=== PATIENT | female | born 1975 | race Caucasian/White ===

== ENCOUNTER → 2016-04-30 | Outpatient (CLI) | payer OTHER | LOC: FIMAGING 11:59 | DX: Z12.31 Encounter for screening mammogram for malignant neoplasm of breast (principal); Z80.3 Family history of malignant neoplasm of breast | CPT/HCPCS: G0202 ==

== ENCOUNTER → 2016-08-19 | Outpatient (CLI) | payer OTHER | LOC: FIMAGING 12:38 | PROVIDERS: ATTEND Family Medicine | DX: M54.12 Radiculopathy, cervical region (principal); Z98.1 Arthrodesis status ==

== ENCOUNTER 2016-11-06 10:49 | Observation (INO) | payer OTHER ==
[2016-11-06 11:58] LABS: COLOR YELLOW; LEUKOCYTE ESTERASE,URINE 1+ (NEGATIVE); NITRITE,URINE NEGATIVE (NEGATIVE)
[2016-11-06 12:05] LABS: MUCUS TRACE /lpf (NONE-1+)
[2016-11-06 12:32] LABS: % IMMATURE GRANULYOCYTES 0.8 % (0.0-1.1); ABSOLUTE IMMATURE GRANULOCYTES 0.08 10^3/uL (0.00-0.10); ADD DIFF? NO; ADD MORPH? NO; ADD SCAN? NO; ATYPICAL LYMPHOCYTE FLAG 20 (0-99); FRAGMENT RBC FLAG 0 (0-99); HEMATOCRIT 40.2 % (38.0-47.0); HEMOGLOBIN 13.5 g/dL (12.6-16.3); LEFT SHIFT FLG 0 (0-99); LIPEMIA HEMOLYSIS FLAG 80 (0-99); MEAN CELL HEMOGLOBIN 28.5 pg (27.9-34.1); MEAN CELL HEMOGLOBIN CONCENTR. 33.6 g/dL (32.4-36.7); MEAN PLATELET VOLUME 9.5 fL (8.7-11.7); PLATELET CLUMPS FLAG 0 (0-99); PLATELET COUNT 414 10^3/uL (150-400); RED BLOOD CELL COUNT 4.73 10^6/uL (4.18-5.33); RED CELL DISTRIBUTION WIDTH 12.2 % (11.5-15.2)
[2016-11-06 12:39] LABS: ALANINE AMINOTRANSFERASE 18 IU/L (9-52); ALBUMIN 3.9 g/dL (3.5-5.0); ALKALINE PHOSPHATASE 82 IU/L (38-126); ANION GAP 14 mEq/L (8-16); ASPARTATE AMINOTRANSFERASE 15 IU/L (14-46); BILIRUBIN,TOTAL 0.4 mg/dL (0.1-1.4); BILIRUBIN-CONJUGATED 0.3 mg/dL (0.0-0.5); BILIRUBIN-UNCONJUGATED 0.1 mg/dL (0.0-1.1); CALCIUM 9.1 mg/dL (8.5-10.4); CARBON DIOXIDE 19 mEq/l (22-31); CHLORIDE 104 mEq/L (97-110); CREATININE 0.7 mg/dL (0.6-1.0); GLOMERULAR FILTRATION RATE > 60; GLUCOSE 105 mg/dL (70-100); POTASSIUM 4.6 mEq/L (3.5-5.2); SODIUM 137 mEq/L (134-144); TOTAL PROTEIN 7.3 g/dL (6.3-8.2)
--- NOTE | 2016-11-06 14:55 | EDPHY ---
H & P Time Seen by Provider: 11/06/16 12:05 HPI/ROS: CHIEF COMPLAINT: Abdominal pain, vomiting HISTORY OF PRESENT ILLNESS: 41-year-old female presents to the emergency department with intermittent right upper quadrant abdominal pain and right flank pain that began over the weekend. She was vomiting multiple times. She developed severe pain today and then presented to the emergency department. She felt the pain improved some. She thought the pain was actually moving. She initially thought it was a kidney stone. She has had numerous kidney stones all which she is able to pass on her own. No diarrhea. No fevers or chills. No reported trauma. No chest pain or difficulty breathing. REVIEW OF SYSTEMS: Constitutional: No fever, no chills. Eyes: No double or blurry vision. ENT: No sore throat. Respiratory: No cough, no shortness of breath. Cardiac: No chest pain. Gastrointestinal: Abdominal pain, vomiting as above. No diarrhea Genitourinary: No dysuria. Musculoskeletal: No neck or back pain. Skin: No rashes. Neurological: No headache. Past Medical/Surgical History: C6-7 fusion, depression, extended control pills Social History: Single and lives in [place], works as an RN Physical Exam: General Appearance: Alert, no distress. Afebrile. Eyes: Pupils equal and round. Extraocular motions are all intact. ENT: Mouth: Mucous membranes moist. Respiratory: No wheezing, rhonchi, or rales, lungs are clear to auscultation. Cardiovascular: Regular rate and rhythm. Gastrointestinal: Abdomen is soft. She has tenderness with palpation in the right upper quadrant. There is no rebound, guarding or masses noted. No CVA tenderness bilaterally. Neurological: Alert and oriented x 3, cranial nerves II through XII grossly intact Skin: Warm and dry, no rashes. Musculoskeletal: Nontender to palpate along the cervical, thoracic or lumbar spine. Neck is supple. Extremities: Full range of motion and no peripheral edema. Psychiatric: Patient is oriented X 3, there is no agitation. Constitutional: Initial Vital Signs Temperature (C) 36.8 C 11/06/16 10:51 Heart Rate 104 H 11/06/16 10:51 Respiratory Rate 18 11/06/16 10:51 Blood Pressure 145/105 H 11/06/16 10:51 O2 Sat (%) 96 11/06/16 10:51 O2 Delivery Mode Room Air Allergies/Adverse Reactions: Sulfa (Sulfonamide Antibiotics) Allergy (Verified 03/02/13 21:16) tramadol Allergy (Verified 03/02/13 21:16) Home Medications: Medication Instructions Recorded Ethinyl Estradiol/Drospirenone 1 tab PO HS 03/02/13 [Kristen 28 Tablet] Venlafaxine Xr [Effexor Xr] 300 mg PO HS 03/02/13 Acetaminophen/ASA/Caffeine 2 tab PO DAILY PRN 11/06/16 [Excedrin Tablet (*)] Cyclobenzaprine [Flexeril 10 MG 10 mg PO DAILY PRN 11/06/16 (*)] Gabapentin [Neurontin 100 MG (*)] 200 mg PO DAILY PRN 11/06/16 Ibuprofen [Motrin (*)] 800 mg PO DAILY PRN 11/06/16 Loratadine [Claritin] 20 mg PO HS 11/06/16 Ondansetron Odt [Zofran Odt 4 mg 4 - 8 mg PO DAILY PRN 11/06/16 (*)] Sennosides/Psyllium Husk [Senna 1 cap PO HS 11/06/16 Prompt Capsule] Medical Decision Making - Diagnostics Imaging Results: Imaging Impressions Abdomen Ultrasound 11/06/16 12:54 Impression: 1. Cholelithiasis with features of chronic cholecystitis, without biliary dilatation. 2. 2 separate right hepatic lobe lesions similar to prior CT of March 02, 2013, compatible with hepatic hemangiomas. Results called to Sonia Slaughter PA-C, at 2:45 PM. Imaging: Discussed imaging studies w/ call manager Radiologist ED Course/Re-evaluation: 41-year-old female presents to the emergency department with right upper quadrant abdominal pain. Laboratory studies reveal normal white blood cell count. Normal LFTs and lipase. Urinalysis reveals 10-15 red blood cells with 5 -10 white blood cells. I do not think this patient has a kidney stone. Abdominal ultrasound reveals thickened gallbladder wall with to gallstones measuring 1.5 cm and the other 1 measuring 1.25 cm. Common bile duct is normal. She has stable hepatic lesions which were seen on previous imaging of February 2013. Radiologist questioned chronic cholecystitis. Spoke with Dr. Rollins who was in the emergency department and came to evaluate the patient. He gave options of being admitted to have surgery to remove the gallbladder now or she could be discharged home and have this done as an outpatient. I spoke with the patient and she was feeling better. Initially she felt like she could be discharged home but now she is requesting admission and cholecystectomy. Patient will be admitted to Dr. Franky Rollins for cholecystectomy. He recommended 1 g of Invanz IV. Patient was kept NPO. Differential Diagnosis: Including but not limited to cholecystectomy, cholelithiasis, kidney stone, renal colic, urinary tract infection, pyelonephritis - Data Points Laboratory Results: Laboratory Results 11/06/16 11:50 11/06/16 11:50 11/06/16 11/06/16 11/06/16 11:50 11:50 11:25 WBC 10.14 10^3/uL H 10^3/uL (3.80-9.50) RBC 4.73 10^6/uL 10^6/uL (4.18-5.33) Hgb 13.5 g/dL g/dL (12.6-16.3) Hct 40.2 % % (38.0-47.0) MCV 85.0 fL fL (81.5-99.8) MCH 28.5 pg pg (27.9-34.1) MCHC 33.6 g/dL g/dL (32.4-36.7) RDW 12.2 % % (11.5-15.2) Plt Count 414 10^3/uL H 10^3/uL (150-400) MPV 9.5 fL fL (8.7-11.7) Neut % (Auto) 81.2 % H % (39.3-74.2) Lymph % (Auto) 13.0 % L % (15.0-45.0) Griggs % (Auto) 4.6 % % (4.5-13.0) Eos % (Auto) 0.0 % L % (0.6-7.6) Baso % (Auto) 0.4 % % (0.3-1.7) Nucleat RBC Rel Count 0.0 % % (0.0-0.2) Absolute Neuts (auto) 8.23 10^3/uL H 10^3/uL (1.70-6.50) Absolute Lymphs (auto) 1.32 10^3/uL 10^3/uL (1.00-3.00) Absolute Monos (auto) 0.47 10^3/uL 10^3/uL (0.30-0.80) Absolute Eos (auto) 0.00 10^3/uL L 10^3/uL (0.03-0.40) Absolute Basos (auto) 0.04 10^3/uL 10^3/uL (0.02-0.10) Absolute Nucleated RBC 0.00 10^3/uL 10^3/uL (0-0.01) Immature Gran % 0.8 % % (0.0-1.1) Immature Gran # 0.08 10^3/uL 10^3/uL (0.00-0.10) Sodium 137 mEq/L mEq/L (134-144) Potassium 4.6 mEq/L mEq/L (3.5-5.2) Chloride 104 mEq/L mEq/L (97-110) Carbon Dioxide 19 mEq/l L mEq/l (22-31) Anion Gap 14 mEq/L mEq/L (8-16) BUN 12 mg/dL mg/dL (7-23) Creatinine 0.7 mg/dL mg/dL (0.6-1.0) Estimated GFR > 60 Glucose 105 mg/dL H mg/dL (70-100) Calcium 9.1 mg/dL mg/dL (8.5-10.4) Total Bilirubin 0.4 mg/dL mg/dL (0.1-1.4) Conjugated Bilirubin 0.3 mg/dL mg/dL (0.0-0.5) Unconjugated Bilirubin 0.1 mg/dL mg/dL (0.0-1.1) AST 15 IU/L IU/L (14-46) ALT 18 IU/L IU/L (9-52) Alkaline Phosphatase 82 IU/L IU/L (38-126) Total Protein 7.3 g/dL g/dL (6.3-8.2) Albumin 3.9 g/dL g/dL (3.5-5.0) Lipase 78 IU/L IU/L (23-300) Urine Color YELLOW Urine Appearance HAZY Urine pH 5.0 (5.0-7.5) Ur Specific Bedias 1.017 (1.002-1.030) Urine Protein NEGATIVE (NEGATIVE) Urine Ketones NEGATIVE (NEGATIVE) Urine Blood 2+ H (NEGATIVE) Urine Nitrate NEGATIVE (NEGATIVE) Urine Bilirubin NEGATIVE (NEGATIVE) Urine Urobilinogen NEGATIVE EU EU (0.2-1.0) Ur Leukocyte Esterase 1+ H (NEGATIVE) Urine RBC 10-15 /hpf H /hpf (0-3) Urine WBC 5-10 /hpf H /hpf (0-3) Ur Epithelial Cells 1+ /lpf /lpf (NONE-1+) Urine Mucus TRACE /lpf /lpf (NONE-1+) Urine Glucose NEGATIVE (NEGATIVE) Medications Given: Discontinued Medications Ertapenem 1 gm/ Sodium (Chloride) 100 mls @ 200 mls/hr IV EDNOW ONE PRN Reason: Protocol Stop: 11/06/16 15:43 Last Admin: 11/06/16 15:38 Dose: 100 mls Departure - Departure Disposition: [facility] Inpatient Acute Clinical Impression: Cholecystitis Abdominal pain Qualifiers: Abdominal location: right upper quadrant Qualified Code(s): R10.11 - Right upper quadrant pain Condition: Good
[2016-11-06] MEDS ORDERED: ERTAPENEM 1 GM in NS 100 ML IV ONE (15:14)
[2016-11-06] MEDS ORDERED: MIDAZOLAM 2 MG/2 ML VIAL IVP ONE (17:50)
--- NOTE | 2016-11-06 17:53 | PDANEPAE ---
ANE History of Present Illness here for lap anna JAYDA Past Medical History - Cardiovascular History Hx Hypertension: No Hx Arrhythmias: No Hx Chest Pain: No Hx Coronary Artery / Peripheral Vascular Disease: No Hx CHF / Valvular Disease: No Hx Palpitations: No - Pulmonary History Hx COPD: No Hx Asthma/Reactive Airway Disease: No Hx Recent Upper Respiratory Infection: No Hx Oxygen in Use at Home: No Hx Sleep Apnea: No - Endocrine History Hx Diabetes: No Hypothyroid: No Obesity: moderate - Renal History Hx Renal Disorders: No - Liver History Hx Hepatic Disorders: No - Neurological & Psychiatric Hx Hx Neurological and Psychiatric Disorders: No - Cancer History Hx Cancer: No - GI History GERD: no Hx Gastrointestinal Disorders: No - Surgical History Prior Surgeries: cervical fusion ANE Review of Systems Review of systems is: negative - Exercise capacity Exercise capacity: >=4 METS - Systems Constitutional: Reports: no symptoms EENMT: Reports: no symptoms Cardiac: Reports: no symptoms Respiratory: Reports: no symptoms Gastrointestinal: Reports: vomitting Genitourinary: Reports: no symptoms Muscolosketal: Reports: no symptoms Skin: Reports: no symptoms Neurological: Reports: no symptoms Hematologic/Lymphatic: Reports: no symptoms ANE Patient History - Allergies Allergies/Adverse Reactions: Sulfa (Sulfonamide Antibiotics) Allergy (Verified 03/02/13 21:16) tramadol Allergy (Verified 03/02/13 21:16) - Home Medications Home medications: home medication list seen and reviewed Home Medications: Ethinyl Estradiol/Drospirenone [Kristen 28 Tablet] 1 tab PO HS 03/02/13 [Last Taken 11/05/16 23:00] Venlafaxine Xr [Effexor Xr] 300 mg PO HS 03/02/13 [Last Taken 11/05/16 23:00] Acetaminophen/ASA/Caffeine [Excedrin Tablet (*)] 2 tab PO DAILY PRN 11/06/16 [ Last Taken 11/06/16 07:00] Cyclobenzaprine [Flexeril 10 MG (*)] 10 mg PO DAILY PRN 11/06/16 [Last Taken 07:00] Gabapentin [Neurontin 100 MG (*)] 200 mg PO DAILY PRN 11/06/16 [Last Taken 10/30] Ibuprofen [Motrin (*)] 800 mg PO DAILY PRN 11/06/16 [Last Taken 11/06/16 07:00] Loratadine [Claritin] 20 mg PO HS 11/06/16 [Last Taken 11/05/16 23:00] Ondansetron Odt [Zofran Odt 4 mg (*)] 4 - 8 mg PO DAILY PRN 11/06/16 [Last Taken 11/06/16 07:00 8MG] Sennosides/Psyllium Husk [Senna Prompt Capsule] 1 cap PO HS 11/06/16 [Last Taken 11/05/16 23:00] - NPO status NPO Status: no food or drink >8 hours NPO Since - Liquids (Date): 11/06/16 NPO Since - Liquids (Time): 07:00 NPO Since - Solids (Date): 11/05/16 NPO Since - Solids (Time): 23:55 - Anes Hx Anes Hx: no prior problems ANE Labs/Vital Signs - Labs Result Diagrams: 11/06/16 11:50 11/06/16 11:50 - Vital Signs Blood Pressure: 137/93 Heart Rate: 92 Respiratory Rate: 18 O2 Sat (%): 98 Height: 177.8 cm Weight: 104.326 kg ANE Physical Exam - Airway Neck exam: FROM Mallampati Score: Class 1 - Pulmonary Pulmonary: no respiratory distress - Cardiovascular Cardiovascular: regular rate and rhythym - ASA Status ASA Status: II ANE Anesthesia Plan Anesthesia Plan: general endotracheal anesthesia
--- NOTE | 2016-11-06 17:55 | PDGENHP ---
History & Physical Chief Complaint: RUQ PAIN History of Present Illness: FEMALE WITH INTERMITTENT RUQ PAIN OVER LAST WEEK/ US SHOWS MULTIPLE STONES WITH ONE IMPACTED/ LFTS OK/ AFEBRILE/ UNABLE TO EAT. ADMIT FOR LAP ONELIA/ RISKS AND OPTIONS FULLY DISCUSSED Pertinent Past, Social, Family History: SURGERIES: NONE. MEDS SHANELL, EFFEXOR. ALL: SULFA, TRAMADOL. ROS:- 10 PT REVIEW, - TOB. FAM: NONCONTRIBUTORY Relevant Physical Exam: GEN: UNCOMFORTABLE 41 FEMALE/ AFEBRILE. HEENT: NONICTERIC, WO ADENOPATHY, PERRLA/NO ORAL LESIONS/ SUPPLE NECK. CHEST: CLEAR. COR: RR, NO M. ABD: TENDER RUQ, SOFT, NO HERNIAS. EXTREM: FULL ROM FULL PULSES. NEURO INTACT. SKIN: NO LESIONS Cardiorespiratory Assessment: ACUTE CHOLECYSTITIS. PLAN: LAP ONELIA/ RISKS AND OPTIONS FULLY DISCUSSED
[2016-11-06] MEDS ORDERED: fentaNYL 100 MCG/2 ML INJ ONE ×4 (18:03→19:57)
[2016-11-06] MEDS ORDERED: PROPOFOL/EMULSION 500 MG/50 ML BOTTLE IV ONE (18:05)
[2016-11-06] MEDS ORDERED: HEPARIN 1000 UNIT/1 ML MDV ONE (18:06)
[2016-11-06] MEDS ORDERED: BUPIVACAINE 0.5% 30 ML SDV ONE (18:06)
[2016-11-06] MEDS ORDERED: ONDANSETRON 4 MG/2 ML VIAL IVP PRN ×2 (18:35→18:40)
[2016-11-06] MEDS ORDERED: ONDANSETRON DISINTEGRATING 4 MG TAB PO PRN (18:35)
[2016-11-06] MEDS ORDERED: ACETAMINOPHEN 325 MG TAB PO PRN (18:35)
[2016-11-06] MEDS ORDERED: HYDROmorphONE/DILAUDID 1 MG/ML SYR IVP PRN (18:35)
[2016-11-06] MEDS ORDERED: ALBUTEROL 3 ML DEYVIAL IH PRN (18:40)
[2016-11-06] MEDS ORDERED: PROMETHAZINE HCL 25 MG/ML INJ IVP PRN (18:40)
[2016-11-06] MEDS ORDERED: NALOXONE HCL 0.4 MG/ML INJ IVP PRN (18:40)
[2016-11-06] MEDS ORDERED: fentaNYL 100 MCG/2 ML INJ IVP PRN (18:40)
[2016-11-06] MEDS ORDERED: LR 500 ML IV PRN (18:40)
[2016-11-06] MEDS ORDERED: DEXAMETHASONE 4 MG/ML VIAL IVP PRN (18:40)
[2016-11-06] MEDS ORDERED: NS 1,000 ML IV SCH (18:45)
[2016-11-06] MEDS ORDERED: ceFAZolin 1 GM/5 ML SYR ONE (19:02)
[2016-11-06] MEDS ORDERED: GLYCOPYRROLATE 0.2 MG/1 ML VIAL ONE ×2 (19:10)
[2016-11-06] MEDS ORDERED: NEOSTIGMINE METHYLSULFATE 5 MG/5 ML SYR ONE (19:11)
--- NOTE | 2016-11-06 19:31 | POSTOPPROG ---
Post Op Note Date of Operation: 11/06/16 Surgeon: Franky Rollins Professor Of Early Childhood Education: Belen Girard Anesthesiologist: Papi Anesthesia: GET(General Endotracheal) Pre-op Diagnosis: Cholelithiasis Post-op Diagnosis: same Indication: RUQ pain Procedure: laproscopic cholecystectomy Inf/Abcess present in the surg proc area at time of surgery?: No Depth: Organ Space EBL: Minimal
[2016-11-06] MEDS ORDERED: HYDROmorphONE/DILAUDID 1 MG/ML SYR ONE (19:57)
--- NOTE | 2016-11-06 20:13 | POSTANESTH ---
Post Anesthetic Evaluation Cardiovascular Status: Normal, Stable Respiratory Status: Normal, Stable Level of Consciousness/Mental Status: Can Participate in Eval Pain Control: Adequate, Prn Tx Ordered Nausea/Vomiting Control: Adequate, Prn Tx Ordered Complications Possibly Related to Anesthesia: None Noted
--- NOTE | 2016-11-06 21:12 | GOP ---
[f rep st] OPERATIVE REPORT DATE OF OPERATION: 11/06/2016 SURGEON: Franky Rollins MD [employer] SUPERINTENDENT: Belen Girard PA-C ANESTHESIOLOGIST: Yoav Turpin MD PREOPERATIVE DIAGNOSIS: Acute cholecystitis. POSTOPERATIVE DIAGNOSIS: Acute cholecystitis. PROCEDURE PERFORMED: Laparoscopic cholecystectomy. FINDINGS: The patient was found to have hydrops and severe acute and subacute cholecystitis. The g allbladder was completely the covered with adhesions and was quite thick and edematous with large st ones impacted in the neck of the gallbladder. DESCRIPTION OF PROCEDURE: The patient was taken to the operating room where she received satisfacto ry general endotracheal anesthesia by Dr. Turpin, placed in the supine position, prepped and draped in usual sterile fashion. A periumbilical incision was made. A Veress needle was inserted. Pneumo peritoneum was established. A trocar was introduced. Laparoscope introduced. Good visualization w as obtained. Two other trocars were placed in the upper abdomen under direct vision. The gallbladd er was elevated up. Adhesions were dissected off the gallbladder with electrocautery, freeing up th e colon and duodenum from the body of the gallbladder, exposing the omentum. The cystic triangle wa s exposed. The cystic duct and cystic artery were ultimately dissected free. Good clear view was ob tained. Both structures were multiply hemoclipped and divided with care to avoid injury to the comm on bile duct. The peritoneum of the gallbladder was incised. The gallbladder was dissected free fr om the bed and hepatic fossa. The gallbladder was extracted through the upper midline port site. H emostasis was carefully obtained. The wound was irrigated. Trocars were removed under direct visio n. Trocar sites were closed with 0 Vicryl for the fascia. The wound was infiltrated with 0.5% Elia don, and the skin was closed with 4-0 Monocryl subcuticular stitches. She tolerated the procedure well, was taken to recovery room in good condition. There were no complications. /[id number]/MODL
[2016-11-06] MEDS: OXYCODONE/APAP 5/325 TAB PO PRN (22:55)
[2016-11-06 23:23] VITALS: RESP 16
[2016-11-07 05:18] LABS: % IMMATURE GRANULYOCYTES 0.5 % (0.0-1.1); ABSOLUTE IMMATURE GRANULOCYTES 0.04 10^3/uL (0.00-0.10); ADD DIFF? NO; ADD MORPH? NO; ADD SCAN? NO; ATYPICAL LYMPHOCYTE FLAG 10 (0-99); FRAGMENT RBC FLAG 0 (0-99); HEMATOCRIT 38.2 % (38.0-47.0); HEMOGLOBIN 12.8 g/dL (12.6-16.3); LEFT SHIFT FLG 0 (0-99); LIPEMIA HEMOLYSIS FLAG 80 (0-99); MEAN CELL HEMOGLOBIN 28.3 pg (27.9-34.1); MEAN CELL HEMOGLOBIN CONCENTR. 33.5 g/dL (32.4-36.7); MEAN CELL VOLUME 84.5 fL (81.5-99.8); PLATELET CLUMPS FLAG 0 (0-99); PLATELET COUNT 393 10^3/uL (150-400); RED BLOOD CELL COUNT 4.52 10^6/uL (4.18-5.33); RED CELL DISTRIBUTION WIDTH 12.1 % (11.5-15.2)
--- NOTE | 2016-11-07 10:03 | SOAPPROG ---
SOAP Progress Note Assessment/Plan: Assessment: Helen is a 41yo female POD #1 s/p laparoscopic cholecystectomy. Recovering well. Continue pain control Regular diet Dispo: to home today S: Patient c/o migraine headache which she gets occasionally at baseline. She has no complaints regarding her surgery. She denies F/C, N/V/D/C, SOB. She is passing flatus, no BM yet. O: Afebrile Alert and oriented NAD Abdomen soft, nontender, nondistended Lap incisions intact with steri strips. Strips are clean and dry +BS Objective: Vital Signs Temp Pulse Resp BP Pulse Ox 36.9 C 103 H 16 139/80 H 93 11/07/16 08:00 11/07/16 08:00 11/07/16 08:00 11/07/16 08:00 11/07/16 08:00 Laboratory Results 11/07/16 05:00 11/06/16 11/07/16 11/08/16 05:59 05:59 05:59 Intake Total 3200 Output Total 0 Balance 3200 ICD10 Worksheet Patient Problems: Problems Problem Status Onset Abdominal pain Acute Cholecystitis Acute
[2016-11-07 11:52] VITALS: BP 123/88; PULSE 83; TEMP 98.4; O2SAT 95
[2016-11-07] MEDS: OXYCODONE/APAP 5/325 TAB PO PRN (12:00)
--- NOTE | 2016-11-07 18:26 | ASDISCHSUM ---
Discharge Information Plan Status:Home with No Needs Medically Cleared to Leave: Discharge Date:11/07/2016 01:25 PM CM D/C Disposition:Home, Routine, Self-Care ADT D/C Disposition:Home, Routine, Self-Care Projected Discharge Date:11/07/2016 01:25 PM Transportation at D/C:Family Discharge Delay Reason: Follow-Up Date:11/07/2016 01:25 PM Discharge Slot: Final Diagnosis: Placement Information Patient Contact Information Contact Name:MADHAVIDANIELLE Relationship: Address: Home Phone: Work Phone: City: Alternate Phone: State/Zip Code: Email: Financial Information Financial Class:HMO and PPO Plans Primary Plan Desc:[employer] Primary Plan Number:[id number] Secondary Plan Desc: Secondary Plan Number: Assessment Information Intervention Information
[2016-11-08] MEDS ORDERED: ENOXAPARIN 40 MG/0.4 ML SYR SC SCH (09:00)
== END 2016-11-07 13:25 | disposition home or self-care (01) ==
LOC: F3E 20:21
PROVIDERS: ADMIT Surgery; ATTEND Surgery
PROC: 0FT44ZZ Resection of Gallbladder, Percutaneous Endoscopic Approach (ICD-10-PCS; principal; 2016-11-06 17:15)
DX: K81.0 Acute cholecystitis (principal); F32.9 Major depressive disorder, single episode, unspecified; G43.909 Migraine, unspecified, not intractable, without status migrainosus; Z98.1 Arthrodesis status
CPT/HCPCS: 47562; 76705; 96374; 99285; G0378; J1170; J1335; J2250; J2704; J2710; J3010

== ENCOUNTER → 2017-05-04 | Outpatient (CLI) | payer OTHER | LOC: FIMAGING 10:07 | PROVIDERS: ATTEND Family Medicine | DX: Z12.31 Encounter for screening mammogram for malignant neoplasm of breast (principal); Z80.3 Family history of malignant neoplasm of breast ==

== ENCOUNTER → 2017-05-19 | Outpatient (CLI) | payer OTHER | LOC: FIMAGING 09:19 | PROVIDERS: ATTEND Family Medicine | DX: N63.10 Unspecified lump in the right breast, unspecified quadrant (principal); N63.20 Unspecified lump in the left breast, unspecified quadrant ==

== ENCOUNTER → 2017-12-25 | Outpatient (CLI) | payer OTHER | LOC: FIMAGING 08:50 | PROVIDERS: ATTEND Family Medicine | DX: R92.8 Other abnormal and inconclusive findings on diagnostic imaging of breast (principal) ==